=== PATIENT | female | born 1990 | race Caucasian/White ===

== ENCOUNTER 2018-06-02 18:55 | Emergency (ER) | payer OTHER ==
[~2018-06-02] VITALS: Ht 160 cm; Wt 56.7 kg
[~2018-06-02 18:55] MED LIST: FSLUDL325 PO; MOTRL PO; OXYC-57 PO; PEDICHW50 PO
[2018-06-02 18:57] VITALS: Ht 160 cm; Wt 56.7 kg
[2018-06-02] MEDS ORDERED: SODIUM CHLORIDE 0.9% 1000ML 1,000 ML IV STA (19:11)
[2018-06-02] MEDS ORDERED: ONDANSETRON INJ 2 MG/ML 2 ML VIAL IV STA (19:11)
[2018-06-02] MEDS ORDERED: MoRPHine SULFATE 4 MG/ML 1 ML CARP\\VIAL IV PRN (19:15)
--- NOTE | 2018-06-02 19:37 | EMERGENCY ROOM VISIT NOTE ---
History Report prepared by Shaan: Dillan Garcia Under the Supervision of: Dr. Mitesh Rodriguez D.O. First contact with patient: 18:59 Chief Complaint: ED VAG BLEEDING Stated Complaint: ABDOMINAL CRAMPING, BLEEDING, 10 WKS PREG History of Present Illness The patient is a 27 year old female who presents to the Emergency Room with complaints of vaginal bleeding beginning 2 weeks ago. The patient reports that she is currently 10 weeks . She notes this is her second , and she currently has a 3 year old child at home. She denies any problems or bleeding with her first , although she reports she needed to have a section because the child was too large. She states that 2 weeks ago the symptoms were only spotting, but has since worsened. The patient reports current abdominal pain, and she states that she is bleeding "a lot" and used multiple pads today. She states that she urinated before reporting to the ER. She denies clots, swelling, nausea, or vomiting. She reports that she was identified as Rh-negative and was given RhoGAM 2 days ago. She also recently had blood work and an ultrasound that showed no abnormalities. She denies a history of diabetes, or alcohol and tobacco use. She denies being on regular medications. 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 Source of History: patient Onset: 2 weeks ago Position: other (vagina) Symptom Intensity: "a lot" Quality: other (bleeding) Associated Symptoms: No nausea, No vomiting Note: denies clots or swelling Review of Systems See HPI for pertinent positives & negatives. A total of 10 systems reviewed and were otherwise negative. Past Medical & Surgical Surgical Problems: (1) Previous section Family History Patient reports no known family medical history. Social History Smoking Status: Never Smoker Current/Historical Medications Scheduled Pediatric Multiple Vitamin W/ (Flintstones Chewable), 1 TAB PO BID Allergies Coded Allergies: No Known Allergies (Unverified , 06/02/18) Physical Exam Vital Signs Date Time Temp Pulse Resp B/P (MAP) Pulse Ox O2 Delivery O2 Flow Rate FiO2 06/02/18 23:30 36.4 18 81/56 (69) 100 Oxymask 15 06/02/18 22:19 99 18 110/65 99 06/02/18 21:41 104 18 102/60 98 Room Air 06/02/18 18:57 36.9 110 20 116/69 97 Room Air Physical Exam GENERAL: Patient is awake, alert, and very anxious-appearing. EYES: The conjunctivae are clear. The pupils are round and reactive. EARS, NOSE, MOUTH AND THROAT: The nose is without any evidence of any deformity. Mucous membranes are moist. Tongue is midline NECK: The neck is nontender and supple. RESPIRATORY: Normal respiratory effort is noted. There is no evidence of wheezing rhonchi or rales to auscultation. CARDIOVASCULAR: Regular rate and rhythm noted. There no murmurs rubs or gallops normal S1 normal S2 GASTROINTESTINAL: The abdomen is soft. Bowel sounds are present in all quadrants. Abdomen is nontender. BACK: No midline tenderness or or step-off noted range of motion in flexion extension as well as rotation no signs of muscle spasm noted. MUSCULOSKELETAL/EXTREMITIES: There is no evidence of gross deformity. Full range of motion is noted in the hips and shoulders. SKIN: There is no obvious evidence of any rash. There are no petechiae, pallor or cyanosis noted. NEUROLOGIC: Patient is awake alert and oriented x3. Medical Decision & Procedures ER Provider Diagnostic Interpretation: Radiology results as stated below per my review and radiologist interpretation: TRANSVAG-FEMALE PELVIS HISTORY: Pain. Bleeding. EVALUATE OB-SUPERVISOR COMMUNICATIONS AND SIGNALS/VAGINAL BLEEDING COMPARISON: None. FINDINGS: Uterus: Midline with a greatest linear dimension of 11.4 cm. No evidence for an intrauterine gestational sac. Complex mass within the lower uterine segment and cervix suggesting prior exam of the gestation versus hemorrhage. This measures approximate 6 x 7 cm. Endometrial stripe: Not applicable Right ovary: Maximum dimension 3.7 cm. Normal vascular flow Left ovary: 3.1 cm maximum dimension with normal vascular flow Miscellaneous:No pelvic free fluid. IMPRESSION: 1. Heterogeneous masslike process lower uterine segment as well as the cervical canal. 2. This is suggestive of blood clot and or hematoma versus residual products of conception.. 3. No evidence for well-defined intrauterine gestational sac. 4. Normal ovaries. The above report was generated using voice recognition software. It may contain grammatical, syntax or spelling errors. Electronically signed by: Ivan Gutierrez M.D. 06/02/2018 8:52 PM Dictated Date/Time: 06/02/2018 8:49 PM Laboratory Results 06/02/18 19:21 Red Blood Count 3.93, Mean Corpuscular Volume 92.1, Mean Corpuscular Hemoglobin 31.3, Mean Corpuscular Hemoglobin Concent 34.0, Mean Platelet Volume 9.8, Neutrophils (%) (Auto) 68.3, Lymphocytes (%) (Auto) 25.1, Monocytes (%) (Auto) 6.1, Eosinophils (%) (Auto) 0.2, Basophils (%) (Auto) 0.1, Neutrophils # (Auto) 5.98, Lymphocytes # (Auto) 2.20, Monocytes # (Auto) 0.53, Eosinophils # (Auto) 0.02, Basophils # (Auto) 0.01 06/02/18 19:20 Test 06/02/18 19:20 06/02/18 19:21 Prothrombin Time 10.7 SECONDS (9.0-12.0) Prothromb Time International Ratio 1.0 (0.9-1.1) Activated Partial Thromboplast Time 26.1 SECONDS (21.0-31.0) Partial Thromboplastin Ratio 1.0 Anion Gap 11.0 mmol/L (3-11) Est Creatinine Clear Calc Drug Dose 105.6 ml/min Estimated GFR () 139.1 Estimated GFR (Non- 120.0 BUN/Creatinine Ratio 16.9 (10-20) Calcium Level 8.5 mg/dl (8.5-10.1) Total Bilirubin 0.5 mg/dl (0.2-1) Aspartate Amino Transf (AST/SGOT) 15 U/L (15-37) Alanine Aminotransferase (ALT/SGPT) 27 U/L (12-78) Alkaline Phosphatase 50 U/L (45-117) Total Protein 7.4 gm/dl (6.4-8.2) Albumin 4.0 gm/dl (3.4-5.0) Globulin 3.4 gm/dl (2.5-4.0) Albumin/Globulin Ratio 1.2 (0.9-2) Human Chorionic Gonadotropin, Quant 6539 mIU/mL White Blood Count 8.76 K/uL (4.8-10.8) Red Blood Count 3.93 M/uL (4.2-5.4) Hemoglobin 12.3 g/dL (12.0-16.0) Hematocrit 36.2 % (37-47) Mean Corpuscular Volume 92.1 fL (80-100) Mean Corpuscular Hemoglobin 31.3 pg (25-34) Mean Corpuscular Hemoglobin Concent 34.0 g/dl (32-36) Platelet Count 260 K/uL (130-400) Mean Platelet Volume 9.8 fL (7.4-10.4) Neutrophils (%) (Auto) 68.3 % Lymphocytes (%) (Auto) 25.1 % Monocytes (%) (Auto) 6.1 % Eosinophils (%) (Auto) 0.2 % Basophils (%) (Auto) 0.1 % Neutrophils # (Auto) 5.98 K/uL (1.4-6.5) Lymphocytes # (Auto) 2.20 K/uL (1.2-3.4) Monocytes # (Auto) 0.53 K/uL (0.11-0.59) Eosinophils # (Auto) 0.02 K/uL (0-0.5) Basophils # (Auto) 0.01 K/uL (0-0.2) RDW Standard Deviation 44.4 fL (36.4-46.3) RDW Coefficient of Variation 13.1 % (11.5-14.5) Immature Granulocyte % (Auto) 0.2 % Immature Granulocyte # (Auto) 0.02 K/uL (0.00-0.02) Laboratory results per my review. Medications Administered Medications (Trade) Dose Ordered Sig/Keily Route Start Time Stop Time Status Last Admin Dose Admin Ondansetron HCl (Zofran Inj) 4 mg NOW STAT IV 06/02/18 19:11 06/02/18 19:12 DC 06/02/18 19:45 4 MG Sodium Chloride 1,000 ml @ 999 mls/hr Q1H1M STAT IV 06/02/18 19:11 06/02/18 20:11 DC 06/02/18 19:44 999 MLS/HR Morphine Sulfate (MoRPHine SULFATE INJ) 4 mg Q15M PRN IV 06/02/18 19:15 06/16/18 19:14 06/02/18 19:45 4 MG Methylergonovine Maleate (Methergine Inj) 0.2 mg STK-MED ONCE .ROUTE 06/02/18 23:12 06/02/18 23:13 DC 06/02/18 23:15 0.2 MG Procedure Bedside ultrasound was obtained. No definite intrauterine gestational sac noted. ED Course 1900: The patient was evaluated in room C7. A complete history and physical examination were performed. 1910: Ordered Sodium Chloride 1000 ml @ 999 mls/hr IV, Zofran 4 mg IV 1914: Ordered Morphine Sulfate 4 mg IV 1934: Beta-HCG quantitative on 05/30 was 1169, and on 05/31 was 9158. 2099: I spoke with Dr. Reggie Fox OB-SUPERVISOR COMMUNICATIONS AND SIGNALS. He will reevaluate the patient for hospitalization. Medical Decision Differential diagnosis: Etiologies such as ectopic , dysfunction uterine bleeding, bleeding dyscrasia, trauma, infection, as well as others were entertained. Nursing notes reviewed. The patient is a 27-year-old female who presented to the emergency department for vaginal bleeding. The patient started having vaginal bleeding a few days ago. She is approximately 10 weeks by dates. She knows that her blood type is A-. She was given RhoGam 2 days ago. The patient started having heavy bleeding while she was in the emergency department. Her beta quant hCG appears to be dropping over the last 3 measurements. I reviewed the patient's laboratory and radiographic studies with her. Because the amount of bleeding I also discussed her case with the on-call [facility]ARD physician. He is agreed to evaluate the patient in the emergency department for further management and disposition. The patient may require surgical intervention because of the amount of bleeding at this time. The patient was treated with IV fluids IV pain medicine and IV Zofran. She was feeling much better on subsequent reevaluation. Medication Reconcilliation Current Medication List: was personally reviewed by me Blood Pressure Screening Patient's blood pressure: Normal blood pressure Blood pressure disposition: Did not require urgent referral Consults Time Called: 2029 Consulting Physician: Dr. Reggie Fox OB-SUPERVISOR COMMUNICATIONS AND SIGNALS Returned Call: [address] Reggie Fox OB-SUPERVISOR COMMUNICATIONS AND SIGNALS. He will reevaluate the patient for hospitalization. Impression Primary Impression: Inevitable Additional Impression: Vaginal bleeding Scribe Attestation The scribe's documentation has been prepared under my direction and personally reviewed by me in its entirety. I confirm that the note above accurately reflects all work, treatment, procedures, and medical decision making performed by me. Departure Information Dispostion Being Evaluated By Hospitalist (Dr. Reggie Rosenberg [place] OB-SUPERVISOR COMMUNICATIONS AND SIGNALS) Referrals No Doctor, Assigned (PCP) Patient Instructions My [facility] Problem Qualifiers
[2018-06-02 19:46] LABS: BASO % 0.1 %; BASO ABS # 0.01 K/uL (0-0.2); EOS % 0.2 %; EOS ABS # 0.02 K/uL (0-0.5); HEMATOCRIT 36.2 % (37-47); HEMOGLOBIN 12.3 g/dL (12.0-16.0); IG# 0.02 K/uL (0.00-0.02); LYMPH % 25.1 %; MEAN CELL VOLUME 92.1 fL (80-100); MEAN CORPUSCULAR HEMOGLOBIN 31.3 pg (25-34); MEAN PLATELET VOLUME 9.8 fL (7.4-10.4); MONO % 6.1 %; MONO ABS # 0.53 K/uL (0.11-0.59); NEUT % 68.3 %; NEUT ABS # 5.98 K/uL (1.4-6.5); PLATELET COUNT 260 K/uL (130-400); RED CELL DISTRIBUTION WIDTH CV 13.1 % (11.5-14.5); RED CELL DISTRIBUTION WIDTH SD 44.4 fL (36.4-46.3); WHITE BLOOD COUNT 8.76 K/uL (4.8-10.8)
[2018-06-02 19:56] LABS: PTT PATIENT 26.1 SECONDS (21.0-31.0)
[2018-06-02 20:08] LABS: CALCIUM 8.5 mg/dl (8.5-10.1); CREATININE 0.65 mg/dl (0.60-1.20); POTASSIUM 3.1 mmol/L (3.5-5.1); TOTAL PROTEIN 7.4 gm/dl (6.4-8.2)
--- NOTE | 2018-06-02 20:53 | DIAGNOSTIC IMAGING REPORT ---
TRANSVAG-FEMALE PELVIS HISTORY: Pain. Bleeding. EVALUATE OB-BOIL OFF WORKER/VAGINAL BLEEDING COMPARISON: None. FINDINGS: Uterus: Midline with a greatest linear dimension of 11.4 cm. No evidence for an intrauterine gestational sac. Complex mass within the lower uterine segment and cervix suggesting prior exam of the gestation versus hemorrhage. This measures approximate 6 x 7 cm. Endometrial stripe: Not applicable Right ovary: Maximum dimension 3.7 cm. Normal vascular flow Left ovary: 3.1 cm maximum dimension with normal vascular flow Miscellaneous:No pelvic free fluid. IMPRESSION: 1. Heterogeneous masslike process lower uterine segment as well as the cervical canal. 2. This is suggestive of blood clot and or hematoma versus residual products of conception.. 3. No evidence for well-defined intrauterine gestational sac. 4. Normal ovaries. The above report was generated using voice recognition software. It may contain grammatical, syntax or spelling errors. Electronically signed by: Ivan Gutierrez M.D. 06/02/2018 8:52 PM Dictated Date/Time: 06/02/2018 8:49 PM
--- NOTE | 2018-06-02 22:03 | HISTORY & PHYSICAL EXAMINATION ---
DATE OF ADMISSION: 06/02/2018 CHIEF COMPLAINT: Heavy vaginal bleeding with clotting. Positive test. HISTORY OF PRESENT ILLNESS: The patient is a 27-year-old 2, para 1, general health is good. She is on no chronic pills or medication. She has had 1 previous , a boy delivered 2014, 8 pounds 3 ounces, failed induction of labor requiring . Last menstrual period for this was 03/20/2018, been bleeding for the past 2 weeks. She was seen for the first time on Sunday. At that time, they did a transvaginal ultrasound, which showed an intrauterine sac, but no viable . Has been followed with serial beta units which are falling. She called with heavy vaginal bleeding for several hours. She has had heavy vaginal bleeding, soaking over a pad an hour with passage of large clots. She is presently being scheduled for an outpatient D and E. PAST MEDICAL HISTORY: Has a 2-year-old in good health. ALLERGIES: No known drug allergies. PAST SURGICAL HISTORY: Had wisdom teeth removed, had . MEDICAL HISTORY: No history of rheumatic fever, heart disease, heart murmur, diabetes, tuberculosis. SOCIAL HISTORY: No smoking. No alcohol intake. Works at [employer]. FAMILY HISTORY: Mom 75, diabetic. Father 79, has had bypass surgery. Two brothers, one sister in good health. REVIEW OF SYSTEMS: HEAD: No symptoms of frequent or severe headaches. EYES: No symptoms of blurred vision, double vision. EARS: No symptoms of frequent ear infections, difficulty hearing. PHYSICAL EXAMINATION: GENERAL: Well-developed, well-nourished, 27-year-old white female, alert, oriented x3 and cooperative, in no acute distress. HEART: Regular rhythm. S1, S2 are normal. LUNGS: Clear to auscultation and percussion. ABDOMEN: Soft and nontender. PELVIC: Revealed heavy vaginal bleeding with clotting. MUSCULOSKELETAL: Revealed no calf tenderness. IMPRESSIONS OF THIS CASE: Status post , status post wisdom teeth and incomplete with heavy bleeding.
[2018-06-02 22:19] VITALS: O2SAT 99
[2018-06-02] MEDS ORDERED: SUCCINYLCHOLINE CHLORIDE 20 MG/ML 10 ML VIAL IV ONE (22:31)
[2018-06-02] MEDS ORDERED: PROPOFOL IV EMULSION 10 MG/ML 20 ML VIAL ONE (22:31)
[2018-06-02] MEDS ORDERED: LIDOCAINE HCL 2% 2 ML VIAL (20MG/ML) ONE (22:31)
[2018-06-02] MEDS ORDERED: MIDAZOLAM HCL 1 MG/ML 2ML VIAL ONE (22:32)
[2018-06-02] MEDS ORDERED: FENTANYL CITRATE INJ 50 MCG/1 ML 2 ML VIAL ONE (22:33)
[2018-06-02] MEDS ORDERED: ATROPINE SULFATE 0.1 MG/ML 5ML SYR IV PRN (23:00)
[2018-06-02] MEDS ORDERED: FENTANYL CITRATE INJ 50 MCG/1 ML 2 ML VIAL IV PRN (23:00)
[2018-06-02] MEDS ORDERED: EpHEDrine SULFATE INJ 50 MG/ML AMP IV PRN (23:00)
[2018-06-02] MEDS ORDERED: ONDANSETRON INJ 2 MG/ML 2 ML VIAL IV PRN ×2 (23:00→23:30)
[2018-06-02] MEDS ORDERED: METHYLERGONOVINE MALEATE 0.2 MG/ML AMP ONE (23:12)
--- NOTE | 2018-06-02 23:16 | [facility] Post Operative Brief Note ---
Immediate Operative Summary Operative Date Jun 02, 2018. Pre-Operative Diagnosis incomplete heavy vaginal bleeding Post-Operative Diagnosis incomplete Procedure(s) Performed suction and sharp curretage of uterine cavity Surgeon jose cruz Liquid Yeast Supervisor Surgeon(s) none Estimated Blood Loss 10 ml Findings Consistent with Post-Op Diagnosis Specimens uterine contents Drains None Anesthesia Type General Complication(s) none Disposition Accompanied Pt To Recover: no Disposition: Surgical ICU Overlapping Procedure I was immediately available: during the entire case
[2018-06-02] MEDS ORDERED: SODIUM CHLORIDE 0.9% 1000ML 1,000 ML IV SCH (23:21)
[2018-06-02] MEDS ORDERED: KETOROLAC TROMETHAMINE 30 MG/ML VIAL IV. PRN (23:30)
[2018-06-02] MEDS ORDERED: HYDROCODONE/ACETAMIN 5/325MG TAB PO PRN ×3 (23:30)
[2018-06-02] MEDS ORDERED: IBUPROFEN 600 MG TAB PO PRN (23:30)
[2018-06-02] MEDS ORDERED: OXYCODONE/ACETAMINOPHEN 5-325 TAB PO PRN ×2 (23:30)
--- NOTE | 2018-06-02 23:41 | Anesthesiology Progress Note ---
Anesthesia Post Op Note Date & Time Jun 02, 2018 at 23:41 Vital Signs Pain Intensity: 2.0 Vital Signs Past 12 Hours Date Time Temp Pulse Resp B/P (MAP) Pulse Ox O2 Delivery O2 Flow Rate FiO2 06/02/18 22:19 99 18 110/65 99 06/02/18 21:41 104 18 102/60 98 Room Air 06/02/18 18:57 36.9 110 20 116/69 97 Room Air Notes Mental Status: alert / awake / arousable, participated in evaluation Pt Amnestic to Procedure: Yes Nausea / Vomiting: adequately controlled Pain: adequately controlled Airway Patency, RR, SpO2: stable & adequate BP & HR: stable & adequate Hydration State: stable & adequate Anesthetic Complications: no major complications apparent
--- NOTE | 2018-06-02 23:42 | OPERATIVE REPORT ---
DATE OF OPERATION: 06/02/2018 PROCEDURE: Suction and sharp curettage in endometrial cavity. INDICATIONS FOR SURGERY: Heavy bleeding, incomplete . PREOPERATIVE DIAGNOSIS: Heavy bleeding, incomplete . POSTOPERATIVE DIAGNOSIS: Heavy bleeding, incomplete . PATHOLOGY: Pending. SURGEON: Dirk Paredes MD ESTIMATED BLOOD LOSS: 10 mL. ANESTHESIA: General. OPERATIVE FINDINGS AND PROCEDURE: The patient was brought to the OR table, correctly identified by armband and conversation. Perineum and vagina were painted with Betadine paint, draped in usual sterile fashion. Catheter was used to empty the bladder. Careful pelvic exam under anesthesia revealed about an 8-9 weeks' gestational size uterus, anteverted. There were no adnexal masses appreciated. Cervix was opened. Weighted speculum was placed in posterior vagina. Anterior lip of the cervix was grasped with an Allis. A #8 suction curette was placed in uterine cavity. Suction was applied. Tissue could be seen coming through the curette. Following this, a sharp curette was used to gently curette out the uterine cavity and suction was reapplied to remove all remaining fragments and debris. With IV Pitocin running and IM Methergine, uterus contracted nicely. Hemostasis was good. The patient tolerated the procedure well and left the OR in good condition. I attest to the content of the Intraoperative Record and any orders documented therein. Any exception s are noted below.
[2018-06-03 00:30] VITALS: BP 109/65; PULSE 78; TEMP 36.6; O2SAT 100
[2018-06-03 01:15] VITALS: BP 108/65; PULSE 96; O2SAT 100
--- NOTE | 2018-06-03 01:26 | Discharge Instructions ---
Discharge Instructions Date of Service Jun 03, 2018. Visit Reason for Visit: Abdominal Cramping, Bleeding, 10 Wks Preg Discharge Discharge Diagnosis / Problem: incomplete heavy vaginal bleeding Discharge Goals Goal(s): Improve function, Learn about illness, Therapeutic intervention Activity Recommendations Activity Limitations: as noted below ACTIVITY RECOMMENDATIONS: * Avoid tampons, douching, hot tubs, pools, and intercourse until bleeding has stopped. * May shower as usual. * No strenuous activity for 24-48 hours. After 24-48 hours, you may do anything you feel like doing (driving and sports are okay). SPECIAL CARE INSTRUCTIONS: Special Diet: * Mild nausea may occur in the immediate post-operative period. * Take clear liquids such as tea, cola or bouillon until all nausea has subsided; you may then resume your normal diet. Special Care: * Light bleeding and vaginal spotting can last from a few days to 3-4 weeks. Call your doctor if bleeding becomes heavier than the heaviest part of your period. * Check your temperature twice a day for one week. If it goes above 100.4 degrees Fahrenheit (38.0 Celsius), notify your doctor. * Call your doctor's office for an appointment for 6 weeks after your surgery. FOLLOW-UP VISIT: Call your doctor's office for an appointment for 6 weeks after your surgery. Anesthesia . Post Anesthesia Instructions: If you have had General Anesthesia or IV Sedation: * Do not drive today. * Resume driving when surgeon permits. * Do not make important decisions or sign legal documents today. * Call surgeon for: 1. Temperature elevations greater than 101 degrees F. 2. Uncontrollable pain. 3. Excessive bleeding. 4. Persistent nausea and vomiting. 5. Medication intolerance (nausea, vomiting or rash). * For nausea and vomiting use only clear liquids such as: tea, soda, bouillon until nausea subsides, then gradually increase diet as tolerated. * If you have any concerns or questions, call your surgeon's office. If physician is unavailable and it is an emergency, call 911 or go to the nearest emergency room. . Instructions / Follow-Up Instructions / Follow-Up ACTIVITY RECOMMENDATIONS: * Avoid tampons, douching, hot tubs, pools, and intercourse until bleeding has stopped. * May shower as usual. * No strenuous activity for 24-48 hours. After 24-48 hours, you can do anything you feel like doing (driving and sports are okay). RETURN TO SCHOOL/WORK: * You may return to school or work after 24 hours unless specified by your physician. DIET: * Resume previous diet. MEDICATIONS: Resume previous medications unless instructed otherwise by your surgeon. Ibuprofen 200mg 2-3 tablets every 4-6 hours as needed --OR-- Aleve 2 tablets every 8-12 hours as needed for post-operative discomfort Medications are over the counter. Tylenol may be used if above medications are contraindicated or not preferred. Medication should be taken with food or milk. do not take on an empty stomach. SPECIAL CARE INSTRUCTIONS: * Check temperature twice daily for one week. Report any elevation over 101 degrees. * Call office if you experience increased pelvic pain or discomfort not relieved by pain medicine, if you have foul smelling vaginal discharge, if you have bleeding that is heavier than a normal menstrual flow. If you are changing a maxi pad every 1- 2 hours, this is too heavy. vaginal spotting is normal for 1-2 weeks. FOLLOW UP VISIT: Call your doctor's office for a post-operative visit. Diet Recommendations Recommended Home Diet: resume previous diet Procedures Procedures Performed: Dilation, Curettage, and evacutation Pending Studies Studies pending at discharge: no Medical Emergencies . Who to Call and When: Medical Emergencies: If at any time you feel your situation is an emergency, please call 911 immediately. . Non-Emergent Contact Non-Emergency issues call your: Drapery Installer Call Non-Emergent contact if: temperature is above 100.5 . . "Provider Documentation" section prepared by Charlie Paredes. .
== END 2018-06-02 22:22 | disposition home or self-care (01) ==
LOC: C.EDB 18:56 → C.EDC 22:22
DX: O03.9 Complete or unspecified spontaneous abortion without complication (principal); Z3A.10 10 weeks gestation of pregnancy

== ENCOUNTER 2019-06-19 05:19 | Inpatient (IN) ==
--- NOTE | 2019-06-09 12:45 | PAT Medication Instructions ---
Medication Instructions Date of Service June 09, 2019 Home Medications ondansetron HCl 4 mg PO DAILY PRN pediatric multivitamin no.76 [Flintstones Complete] 1 tab PO HS doxylamine-pyridoxine (vit B6) [Diclegis] 2 tab PO HS Take morning of surgery With a small sip of water, OTHERWISE NOTHING TO EAT OR DRINK AFTER MIDNIGHT: ondansetron HCl 4 mg PO DAILY PRN (if needed) Take evening before surgery ondansetron HCl 4 mg PO DAILY PRN (if needed) pediatric multivitamin no.76 [Flintstones Complete] 1 tab PO HS doxylamine-pyridoxine (vit B6) [Diclegis] 2 tab PO HS Other Notes If you have any questions please call us at [phone] or [phone] or [phone] or [phone]
--- NOTE | 2019-06-09 13:19 | Anesthesiology Consultation ---
Date of Service June 09, 2019 Assessment & Plan (1) Encounter for pre-operative examination: Chart Review Chart Review: Acceptable Risk for Surgery and Patient seen in Pre Admission Testing Teaching & Discussion Instructed NPO after midnight before surgery, except medications with 15 cc of water. Medication instructions provided according to the PAT guidelines. History Surgery Operation Date: 06/19/19 08:50 Proposed Procedures p Section in LD - Eliseo Leija MD Height/Weight Height: 5 ft 3 in Weight: 72.5 kg Allergies Allergy/AdvReac Type Severity Reaction Status Date / Time No Known Allergies Allergy Verified 06/02/19 08:35 Medications Home Medications Medication Instructions Recorded Confirmed Last Taken ondansetron HCl 4 mg PO DAILY PRN 11/26/18 06/02/19 02/27/19 08:00 pediatric multivitamin no.76 1 tab PO HS 11/26/18 06/02/19 02/26/19 [Flintstones Complete] doxylamine-pyridoxine (vit B6) 2 tab PO HS 02/27/19 06/02/19 02/26/19 [Diclegis] Past Medical History Medical History Morning sickness No significant past medical history Exercise / Class Metabolic Activity II 4-5 Yardwork/Stairs/Walk up hill (No SOB or CP when not ) Past Family History Family History Mother Family history of diabetes mellitus Grandmother (Maternal) Family history of diabetes mellitus Past Surgical History Surgical History Hx of section Due to failure to progress. Epidural was dosed for C/S. Hx of dilation and curettage Past Anesthesia History No Hx of Anesthesia Complications and No Family Hx of Anesthesia Complications History of PONV No Hx of PONV and Hx of Motion Sickness Social History Smoking Status: Never smoker Do You Dip or Chew Tobacco: No Hx Alcohol Use: No Hx Substance Use: No Review of Systems Pt denies any recent chest pain, shortness of breath, cough, fever or URI. +occasional palpitations in Physical Exam Vital Signs BP: 93/61 (asymptomatic) P: 113 bpm SPO2: 97% RA T: 97% RA R: 98.2 F ENMT Mouth: no dental restorations, no chipped teeth and no loose teeth Thyromental Distance: < 3.5 Finger Breadths (3) Mallampati Class: I Neck normal visual inspection; neck extension not limited Respiratory normal respiratory effort Auscultation: lungs clear to auscultation bilaterally Cardiovascular Rate/Rhythm: regular rhythm and + tachycardic Heart Sounds: no murmur Extremities: no edema
--- NOTE | 2019-06-18 12:46 | History and Physical Report ---
DATE OF ADMISSION: 06/19/2019 Going for surgery tomorrow at [facility] for repeat . CLINICAL HISTORY: The patient is a 28-year-old female 3, para 1-0-1-1 at 39 weeks and 1 day. Today, she is A negative, planning an elective repeat section. PAST SURGICAL HISTORY: Includes a previous at which time she had a hemorrhage complicating the which was due to failure to progress in the second stage of labor. Also, she has had an in 2018 and otherwise no prior surgery. SOCIAL HISTORY: Denies smoking, alcohol or drug use. FAMILY HISTORY: Noncontributory. REVIEW OF SYSTEMS: Negative. PHYSICAL EXAMINATION: HEENT: Within normal limits. LUNGS: Clear to auscultation. COR: Regular rate and rhythm. VITAL SIGNS: Weight 137 pounds, BMI 24.3. Blood pressure and pulse are normal. ABDOMEN: Her abdomen is gravid. heart tone category 1. NEUROLOGIC: Neuro exam is negative. EXTREMITIES: Within normal limits. ASSESSMENT AND PLAN: Repeat . IV antibiotics preop.
[2019-06-19] MEDS ORDERED: LACTATED RINGER'S 1,000 ML IV SCH ×4 (05:30→09:00)
[2019-06-19] MEDS ORDERED: CITRIC ACID/SODIUM CITRATE 15 ML UDC PO SCH (06:00)
[2019-06-19] MEDS ORDERED: CEFAZOLIN 2000MG 2,000 MG/15 ML SYR IV SCH (06:00)
[2019-06-19 06:46] LABS: Basophils # (auto) 0.01 K/uL (0-0.2); Basophils % (auto) 0.1 %; Eosinophils # (auto) 0.04 K/uL (0-0.5); Eosinophils % (auto) 0.5 %; Hematocrit (blood only) 37.1 % (37-47); Hemoglobin 12.5 g/dL (12.0-16.0); Immature Granulocytes # (auto) 0.04 K/uL (0.00-0.02); Immature Granulocytes % (auto) 0.5 %; Lymphocytes # (auto) 2.43 K/uL (1.2-3.4); Lymphocytes % (auto) 28.6 %; Mean Corpuscular Hemoglobin 32.7 pg (25-34); Mean Corpuscular Hgb Conc 33.7 g/dL (32-36); Mean Corpuscular Volume 97.1 fL (80-100); Mean Platelet Volume 11.2 fL (7.4-10.4); Monocytes # (auto) 0.79 K/uL (0.11-0.59); Monocytes % (auto) 9.3 %; Neutrophils # (auto) 5.19 K/uL (1.4-6.5); Platelet Count 178 K/uL (130-400); RDW Coefficient of Variation 15.5 % (11.5-14.5); RDW Standard Deviation 54.2 fL (36.4-46.3); Red Blood Count 3.82 M/uL (4.2-5.4)
[2019-06-19] MEDS ORDERED: PHENYLEPHRINE 100MCG/ML 5ML SYR ONE (06:51)
[2019-06-19] MEDS ORDERED: OXYTOCIN 10 UNITS/ML VIAL ONE (06:51)
[2019-06-19] MEDS ORDERED: MoRPHine SULFATE PF 1 MG/ML 10 ML AMP/VIAL ONE (06:51)
[2019-06-19] MEDS ORDERED: ONDANSETRON INJ 2 MG/ML 2 ML VIAL ONE (06:51)
[2019-06-19] MEDS ORDERED: fentaNYL citrate 100 MCG/2 ML VIAL ONE (06:51)
--- NOTE | 2019-06-19 07:05 | History & Physical Bridge Note ---
Date of Service June 19, 2019 History & Physical Bridge Note I have examined the patient, reviewed the History & Physical and in the interval since the performance of the History & Physical I have noted the following changes of clinical significance: no changes noted
[2019-06-19] MEDS ORDERED: NALOXONE HCL 1 MG in SODIUM CHLORIDE 0.9% 1000ML 1,000 ML IV PRN (07:58)
[2019-06-19] MEDS ORDERED: LACTATED RINGER'S 500 ML IV PRN (07:58)
[2019-06-19] MEDS ORDERED: ePHEDrine sulfate 50 MG/ML AMP IV PRN (07:58)
[2019-06-19] MEDS ORDERED: MoRPHine SULFATE PF 1 MG/ML 10 ML AMP/VIAL INT SPINAL ONE (07:58)
[2019-06-19] MEDS ORDERED: MoRPHine SULFATE 2 MG/ML CARP IV PRN (07:58)
[2019-06-19] MEDS ORDERED: ONDANSETRON INJ 2 MG/ML 2 ML VIAL IV PRN ×2 (07:58→08:53)
[2019-06-19] MEDS ORDERED: NALBUPHINE HCL INJ 10 MG/ML AMP IV PRN (07:58)
[2019-06-19] MEDS ORDERED: NALOXONE HCL 0.4 MG/1 ML VIAL/CARP IV PRN (07:58)
[2019-06-19] MEDS ORDERED: DiphenhydrAMINE HCL 50 MG/ML VIAL IV PRN ×2 (07:58→08:53)
[2019-06-19] MEDS ORDERED: NALOXONE HCL 0.08 MG in SYRINGE 1.8 ML IV PRN (07:58)
[2019-06-19] MEDS ORDERED: MEPERIDINE HCL 25 MG/ML CARP IV PRN (07:58)
[2019-06-19] MEDS ORDERED: NO NARCOTICS OR SEDATIVES SCH (08:00)
[2019-06-19] MEDS ORDERED: DC INTRASPINAL MORPHINE SCH (08:00)
[2019-06-19] MEDS ORDERED: SODIUM CHLORIDE 0.9% 1000ML 1,000 ML IV SCH (08:00)
--- NOTE | 2019-06-19 08:48 | Post Operative Brief Note ---
Immediate Post Op Note v1 Date of Surgery June 19, 2019 Pre & Post Diagnosis Operation Date: 06/19/19 07:30 Pre-Op Diagnosis: Scheduled repeat Section Post-Op Diagnosis: Scheduled repeat Section. Loose nuchal cord times two Procedure Operation Date: 06/19/19 07:30 Actual Procedures p Section in LD - Eliseo Leija MD Surgeon Eliseo Leija MD [employer] [id number] Lorin GABRIEL Estimated Blood Loss 700 Findings Consistent with Post-Op Diagnosis Live female CANx2 Apgars 8/9 weight pending Fluids 1500 ml Specimens placenta cord blood Drains Ferris Catheter Anesthesia Type Spinal Complications none Disposition Accompanied Patient To Recovery: Yes Disposition: L&D Overlapping Procedure I was immediately available: during the entire case. Back up surgeon: was not required during procedure.
[2019-06-19] MEDS ORDERED: SENNA 8.6 MG TAB PO PRN (08:53)
[2019-06-19] MEDS ORDERED: SUPERCREAM 0.870% 15 GM JAR EXT PRN (08:53)
[2019-06-19] MEDS ORDERED: DIPHTHERIA/TETANUS/PERTUSSIS 0.5 ML SYR/VIAL IM ONE (08:53)
[2019-06-19] MEDS ORDERED: BENZOCAINE 20% AER SPR 82.5 GM CAN EXT PRN (08:53)
[2019-06-19] MEDS ORDERED: HYDROCORTISONE ACETATE 25 MG SUPP PR PRN (08:53)
[2019-06-19] MEDS ORDERED: PROMETHAZINE HCL 25 MG in SODIUM CHLORIDE 0.9% 50 ML IV PRN (08:53)
[2019-06-19] MEDS ORDERED: MAGNESIUM HYDROXIDE SUSP 30 ML UDC PO PRN (08:53)
[2019-06-19] MEDS ORDERED: RHOGAM IM SCH (09:00)
--- NOTE | 2019-06-19 09:02 | Anesthesiology Progress Note ---
Date of Service June 19, 2019 Anesthesia Post Procedure Vital Signs Vital Signs: Temp Pulse Resp BP Pulse Ox 06/19/19 08:57 75 100 06/19/19 08:52 76 108/59 L 100 06/19/19 07:01 36.9 C 90 18 117/61 06/19/19 05:55 71 108/54 L 06/19/19 05:52 93 H 76/41 L 06/19/19 05:39 36.8 C 18 06/19/19 05:37 127 H 112/71 Transfer of Care Handoff Completed per policy Notes Mental Status: alert / awake / arousable and participated in evaluation Patient Amnestic to Procedure: No Nausea / Vomiting: adequately controlled Pain: adequately controlled Airway Patency, RR, SpO2: stable & adequate BP & HR: stable & adequate Hydration State: stable & adequate Neuraxial Anesthesia: was administered and sensory block is resolving Anesthetic Complications: no major complications apparent and Pt Satisfied with anesthetic care
[2019-06-19] MEDS: OXYTOCIN 20 UNITS in LACTATED RINGER'S 1,000 ML IV SCH ×2 (09:59→18:33)
[2019-06-19] MEDS: KETOROLAC 30 MG/ML VIAL IV PRN (10:51)
[2019-06-19] MEDS: SIMETHICONE 80 MG CHEW PO SCH (20:20)
[2019-06-19] MEDS: DOCUSATE SODIUM 100 MG CAP PO SCH (20:20)
--- NOTE | 2019-06-19 22:29 | Operative Report ---
DATE OF OPERATION: 06/19/2019 PREOPERATIVE DIAGNOSIS: Term elective repeat section. POSTOPERATIVE DIAGNOSIS: Term elective repeat section. PROCEDURE: Repeat section, low segment transverse. SURGEON: Eliseo Leija MD BOX SHOOK PATCHER: NERY Dangelo. ANESTHESIA: Spinal with Duramorph. CLINICAL HISTORY: The patient is a 28-year-old female, para 1-0-0-1 at 39 weeks, admitted for an elective repeat section. The patient refused trial of labor after . Consents were signed. Timeout was called prior to the start of procedure and antibiotics were given preop. DESCRIPTION OF PROCEDURE: Under satisfactory spinal anesthesia, the patient was prepped and draped in usual sterile fashion. A low Pfannenstiel incision through a prior scar was then made entering and carrying down into the subcuticular layers at the opening of the fascia and the peritoneum. The incision was widened in the AP diameter. The bladder blade was inserted. The uterus was dextrorotated. Pickups were then used to develop a bladder flap. A low segment transverse incision over the lower uterine segment was made. The incision was widened in the AP diameter. Amniotic sac was nicked with an Allis clamp and found to be clear. The infant was then delivered with the aid of fundal pressure from the vertex presentation. There was a nuchal cord x2 that was reduced at the time of delivery. Delayed cord clamping for 1 minute was accomplished. The cord was doubly clamped and cut and handed to spar machine operator. Apgars were 8 and 9. weight was 7 pounds 14 ounces. Cord blood was then obtained. Placenta delivered spontaneously and intact. Uterus was then exteriorized. Ring forceps were then placed on both angles in the inferior margin and another ring was then used to open the cervix. A lap pad was then used to clean out all extra debris from the uterus. The uterus was then closed in double layer closure with 0 Vicryl suture in a continuous interlocking fashion followed by a second imbricating layer. Tubes and ovaries bilaterally were found to be within normal limits. The contents of the pelvic and abdominal cavity were then irrigated to clear. Uterus was then placed back into the normal anatomical position. The initial sponge, needle and instrument count were found to be correct. The fascia was then reapproximated from both ends using 0 Vicryl suture. The subcuticular layer was closed with 3-0 plain suture and the skin was then reapproximated with 4-0 Monocryl. Steri-Strips were then applied. Clear urine was noted from the Ferris. Telfa dressing and ABD dressing were applied. The final sponge, needle and instrument count were found to be correct. ESTIMATED BLOOD LOSS: 700 mL. TOTAL FLUIDS: 1500 mL. The patient was then placed supine on a stretcher and taken to recovery room in stable condition. I attest to the content of the Intraoperative Record and any orders documented therein. Any exception s are noted below.
[2019-06-20] MEDS: KETOROLAC 30 MG/ML VIAL IV PRN (01:49)
[2019-06-20] MEDS ORDERED: KETOROLAC 30 MG/ML VIAL IV PRN (02:00)
[2019-06-20] MEDS ORDERED: DiphenhydrAMINE HCL 50 MG/ML VIAL IV PRN (02:00)
[2019-06-20] MEDS ORDERED: OXYCODONE/ACETAMINOPHEN 5mg/325mg TAB PO PRN (02:00)
[2019-06-20 06:29] LABS: Basophils # (auto) 0.01 K/uL (0-0.2); Basophils % (auto) 0.1 %; Eosinophils # (auto) 0.02 K/uL (0-0.5); Eosinophils % (auto) 0.2 %; Hematocrit (blood only) 29.1 % (37-47); Hemoglobin 9.9 g/dL (12.0-16.0); Immature Granulocytes # (auto) 0.04 K/uL (0.00-0.02); Immature Granulocytes % (auto) 0.4 %; Lymphocytes # (auto) 1.29 K/uL (1.2-3.4); Mean Corpuscular Hemoglobin 33.1 pg (25-34); Mean Corpuscular Volume 97.3 fL (80-100); Mean Platelet Volume 10.4 fL (7.4-10.4); Monocytes % (auto) 9.3 %; Neutrophils # (auto) 8.41 K/uL (1.4-6.5); Platelet Count 150 K/uL (130-400); RDW Coefficient of Variation 15.5 % (11.5-14.5); RDW Standard Deviation 54.5 fL (36.4-46.3); Red Blood Count 2.99 M/uL (4.2-5.4); White Blood Count 10.77 K/uL (4.8-10.8)
--- NOTE | 2019-06-20 08:36 | Surgery Progress Note ---
Date of Service June 20, 2019 Subjective doing well tolerating diet out of bed not passing flatus yet Physical Exam Constitutional: WD/WN, vitals as above comfortable incision clean/dry/intact abdomen soft and non-tender no edema neg Carla's will increase diet/activity encourage ambulation Results & Data Vital Signs (Past 12 Hours) Vital Signs Temp Pulse Resp BP Pulse Ox 06/20/19 03:00 36.8 C 74 16 107/68 99 06/20/19 01:06 16 98 06/20/19 00:15 14 99 06/19/19 23:20 36.8 C 66 16 93/56 L 100 06/19/19 22:40 16 98 06/19/19 21:12 14 98 Laboratory Results Laboratory Results - last 72 hr 06/19/19 06/19/19 06/20/19 06:14 06:14 06:07 WBC 8.50 RBC 3.82 L Hgb 12.5 Hct 37.1 MCV 97.1 MCH 32.7 MCHC 33.7 RDW Std Deviation 54.2 H RDW Coeff of Tali 15.5 H Plt Count 178 MPV 11.2 H Immature Gran % (Auto) 0.5 Neut % (Auto) 61.0 Lymph % (Auto) 28.6 Merrick % (Auto) 9.3 Eos % (Auto) 0.5 Baso % (Auto) 0.1 Immature Gran # (Auto) 0.04 H Neut # (Auto) 5.19 Lymph # (Auto) 2.43 Merrick # (Auto) 0.79 H Eos # (Auto) 0.04 Baso # (Auto) 0.01 Blood Type A Negative A Negative Antibody Screen POSITIVE A Cancelled Antibody Identification Anti-D due to RhIg Screen Negative 06/20/19 06:07 WBC 10.77 RBC 2.99 L Hgb 9.9 L Hct 29.1 L MCV 97.3 MCH 33.1 MCHC 34.0 RDW Std Deviation 54.5 H RDW Coeff of Tali 15.5 H Plt Count 150 MPV 10.4 Immature Gran % (Auto) 0.4 Neut % (Auto) 78.0 Lymph % (Auto) 12.0 Merrick % (Auto) 9.3 Eos % (Auto) 0.2 Baso % (Auto) 0.1 Immature Gran # (Auto) 0.04 H Neut # (Auto) 8.41 H Lymph # (Auto) 1.29 Merrick # (Auto) 1.00 H Eos # (Auto) 0.02 Baso # (Auto) 0.01 Blood Type Antibody Screen Antibody Identification Screen
[2019-06-20] MEDS: DOCUSATE SODIUM 100 MG CAP PO SCH ×2 (09:13→20:55)
[2019-06-20] MEDS: FERROUS SULFATE 325 MG TAB PO SCH (09:13)
[2019-06-20] MEDS: SIMETHICONE 80 MG CHEW PO SCH ×4 (09:13→20:55)
[2019-06-20] MEDS: PRENATAL VITAMIN 1 TAB PO SCH (09:13)
[2019-06-20] MEDS: IBUPROFEN 600 MG TAB PO PRN ×3 (09:13→20:55)
[2019-06-20] MEDS ORDERED: Nursing to Pharmacy Communication ONE (18:14)
[2019-06-20] MEDS ORDERED: BISACODYL 5 MG TABEC PO SCH (20:00)
[2019-06-21] MEDS: IBUPROFEN 600 MG TAB PO PRN ×3 (05:18→13:42)
[2019-06-21 06:42] LABS: Hematocrit (blood only) 26.9 % (37-47); Hemoglobin 8.9 g/dL (12.0-16.0)
[2019-06-21] MEDS: DOCUSATE SODIUM 100 MG CAP PO SCH (07:51)
[2019-06-21] MEDS: PRENATAL VITAMIN 1 TAB PO SCH (07:51)
[2019-06-21] MEDS: SIMETHICONE 80 MG CHEW PO SCH (07:51)
[2019-06-21] MEDS: FERROUS SULFATE 325 MG TAB PO SCH (07:51)
[2019-06-21] MEDS ORDERED: BISACODYL 10 MG SUPP PR PRN (08:54)
--- NOTE | 2019-06-21 11:12 | Obstetrical Progress Note ---
Date of Service June 21, 2019 Subjective Patient is seen and examined. She feels well, no complaints. Likes to be discharged today Pain is under control with oral meds. Ambulating without dizziness Voiding without difficulty Tolerating regular diet with out N&V Flatus + BM neg Bleeding is minimal No fever/ chills/ CP/ SOB/ N&V/ Leg pain breast feeding without problems Vital Signs Temp Pulse Resp BP Pulse Ox 06/21/19 07:53 36.9 C 96 H 19 106/64 97 06/20/19 23:30 36.7 C 86 16 102/62 99 06/20/19 20:30 36.9 C 89 20 105/67 97 06/20/19 15:10 36.9 C 94 H 18 100/62 Lab Results 06/19/19 06/19/19 06/20/19 Range/Units 06:14 06:14 06:07 WBC 8.50 (4.8-10.8) K/uL RBC 3.82 L (4.2-5.4) M/uL Hgb 12.5 (12.0-16.0) g/dL Hct 37.1 (37-47) % MCV 97.1 (80-100) fL MCH 32.7 (25-34) pg MCHC 33.7 (32-36) g/dL RDW Std Deviation 54.2 H (36.4-46.3) fL RDW Coeff of Tali 15.5 H (11.5-14.5) % Plt Count 178 (130-400) K/uL MPV 11.2 H (7.4-10.4) fL Immature Gran % (Auto) 0.5 % Neut % (Auto) 61.0 % Lymph % (Auto) 28.6 % Boone % (Auto) 9.3 % Eos % (Auto) 0.5 % Baso % (Auto) 0.1 % Immature Gran # (Auto) 0.04 H (0.00-0.02) K/uL Neut # (Auto) 5.19 (1.4-6.5) K/uL Lymph # (Auto) 2.43 (1.2-3.4) K/uL Boone # (Auto) 0.79 H (0.11-0.59) K/uL Eos # (Auto) 0.04 (0-0.5) K/uL Baso # (Auto) 0.01 (0-0.2) K/uL Blood Type A Negative A Negative Antibody Screen POSITIVE A Cancelled Antibody Identification Anti-D due to RhIg Screen Negative (Negative) 06/20/19 06/21/19 Range/Units 06:07 06:24 WBC 10.77 (4.8-10.8) K/uL RBC 2.99 L (4.2-5.4) M/uL Hgb 9.9 L 8.9 L (12.0-16.0) g/dL Hct 29.1 L 26.9 L (37-47) % MCV 97.3 (80-100) fL MCH 33.1 (25-34) pg MCHC 34.0 (32-36) g/dL RDW Std Deviation 54.5 H (36.4-46.3) fL RDW Coeff of Tali 15.5 H (11.5-14.5) % Plt Count 150 (130-400) K/uL MPV 10.4 (7.4-10.4) fL Immature Gran % (Auto) 0.4 % Neut % (Auto) 78.0 % Lymph % (Auto) 12.0 % Boone % (Auto) 9.3 % Eos % (Auto) 0.2 % Baso % (Auto) 0.1 % Immature Gran # (Auto) 0.04 H (0.00-0.02) K/uL Neut # (Auto) 8.41 H (1.4-6.5) K/uL Lymph # (Auto) 1.29 (1.2-3.4) K/uL Boone # (Auto) 1.00 H (0.11-0.59) K/uL Eos # (Auto) 0.02 (0-0.5) K/uL Baso # (Auto) 0.01 (0-0.2) K/uL Blood Type Antibody Screen Antibody Identification Screen (Negative) PE: General: Alert, orientedx3, NAD CVS: S1S2 RRR Lungs; CTAB Abd: soft, NT, ND, BS+, fundus firm, below Umbilicus Incision: Clean, dry, intact Perineum intact, Lochia rubra minimal Ext; NT, no edema AP: 28 yo s/p C Section, pod# 2 VSS Afebrile doing well Continue routine postop care Encourage ambulation, PO intake All questions were answered Discussed when to call D/C home , f/u in office Results & Data Vital Signs (Past 12 Hours) Vital Signs Temp Pulse Resp BP Pulse Ox 06/21/19 07:53 36.9 C 96 H 19 106/64 97 06/20/19 23:30 36.7 C 86 16 102/62 99
--- NOTE | 2019-07-04 02:18 | Discharge Summary ---
REASON FOR ADMISSION AND HOSPITAL COURSE: The patient is a 28-year-old female, para 1-0-0-1 at 39 weeks, admitted for an elective repeat section. The patient refused a trial of labor after . section was done under spinal anesthesia delivering a live baby, Apgars were 8 and 9, weight 7 pounds 14 ounces. Hospital course was unremarkable. The patient discharged home in stable condition. DISCHARGE DIAGNOSIS: Term , delivered by repeat section. DISCHARGE INSTRUCTIONS: Regular diet on discharge. CONDITION ON DISCHARGE: Stable. FOLLOWUP: Follow up will be in the office in 1 week. MEDICATIONS: Include Percocet and Motrin for pain.
== END 2019-06-21 14:35 | disposition home or self-care (01) | DRG 788 ==
LOC: 4S1 05:19 → EDSTATUS 08:50 → 4N 11:55